=== PATIENT | male | born 1985 | race Caucasian/White ===

== ENCOUNTER → 2023-02-07 | Emergency (ER) | payer OTHER ==
[~2023-02-07] MED LIST: HYDROCODONE/APAP 7.5/325 MG TAB ONE; LIDOCAINE 1% 20 ML MDV ONE
--- NOTE | 2023-02-07 13:07 | RAD REPORT ---
EXAM DESCRIPTION: CT - Facial Bones W/ Mpr - 02/07/2023 12:34 pm CLINICAL HISTORY: Facial injury with pain s/p fall COMPARISON: None TECHNIQUE: Computed axial tomography of the face was obtained. Coronal and sagittal reconstruction w as performed. All CT scans are performed using dose optimization technique as appropriate and may include automated exposure control or mA/KV adjustment according to patient size. FINDINGS: Several radiopaque densities lie superficial to several mandibular near midline. The large st measures 5 millimeters. Right and left mandibular incisors near midline have become loose at the root A fracture is not seen A TMJ dislocation is not noted. The globes are intact. Fluid within the sinuses is not seen. IMPRESSION: Several radiopaque densities lie superficial to several mandibular near midline. The lar gest measures 5 millimeters. Right and left mandibular incisors near midline have become loose at the root. Presumably this is tra umatic
--- NOTE | 2023-02-07 14:46 | EDPHYS ---
Physician Documentation [facility] Name: Leo Stafford Age: 37 yrs Sex: Male : 1985 Arrival Date: 02/07/2023 Time: 11:54 Bed 12 Private MD: ED Physician Ab Joseph HPI: 02/07 12:20 This 37 yrs old Male presents to ER via Ambulatory with complaints of Laceration To cp Lip, Laceration To Chin. 12:20 The patient has a laceration Patient is a 37-year-old male who presents to the emergency department with a reported slip and fall while in the restroom this morning. Patient reports he struck his lower jaw on the shower causing his upper front teeth to punch through his lower lip. Patient denies any loss of consciousness. Historical: - Allergies: 12:05 No Known Allergies; ap3 - Home Meds: 12:05 trazodone Oral [Active]; Prozac Oral [Active]; ap3 - Immunization history:: Client reports receiving the 2nd dose of the Covid vaccine, Flu vaccine is not up to date. - Social history:: Smoking status: Patient denies any tobacco usage or history of. ROS: 12:25 Constitutional: Negative for chills, fever, cp 12:25 Eyes: Negative for injury, pain, redness, and discharge, cp 12:25 ENT: Positive for dental pain, 12:25 Neck: Negative for pain with movement, pain at rest, stiffness, 12:25 Cardiovascular: Negative for chest pain, palpitations, 12:25 Respiratory: Negative for cough, shortness of breath, wheezing, 12:25 Abdomen/GI: Negative for abdominal pain, vomiting, diarrhea, constipation, 12:25 Back: Negative for pain at rest, pain with movement, 12:25 Neuro: Negative for altered mental status, dizziness, headache, loss of consciousness, syncope, weakness, 12:25 All other systems are negative, Exam: 12:30 Constitutional: The patient appears in no acute distress, alert, awake, non-toxic, well cp developed, well nourished, uncomfortable, 12:30 Head/face: Noted is Mild swelling noted of the lower lip there is a large laceration cp beneath the lower lip and a smaller laceration on the inner part of the lower lip. There is mild bleeding and the area is tender to the touch. Examination of the wound does reveal small pieces of broken teeth. 12:30 Eyes: Periorbital structures: appear normal, Pupils: equal, round, and reactive to light and accomodation, Extraocular movements: intact throughout, Conjunctiva: normal, no exudate, no injection, Sclera: no appreciated abnormality, Lids and lashes: appear normal, bilaterally, 12:30 ENT: External ear(s): are unremarkable, Ear canal(s): are normal, clear, TM's: dullness, bilaterally, Nose: is normal, Mouth: Oral mucosa: pink and intact, moist, Tongue: is normal, Posterior pharynx: Airway: no evidence of obstruction, patent, Dental exam: fractured teeth are noted, specifically the upper right central incisor (#8) and upper left central incisor (#9), pain, that is mild, specifically in the upper right central incisor (#8) and upper left central incisor (#9), loose but in place, 12:30 Neck: C-spine: vertebral tenderness, is not appreciated, crepitus, is not appreciated, ROM/movement: is normal, is supple, without pain, no range of motions limitations, no nuchal rigidity, 12:30 Chest/axilla: Inspection: normal, Palpation: is normal, no crepitus, no tenderness, 12:30 Cardiovascular: Rate: normal, Rhythm: regular, 12:30 Respiratory: the patient does not display signs of respiratory distress, Respirations: normal, no use of accessory muscles, no retractions, labored breathing, is not present, Breath sounds: are clear throughout, no decreased breath sounds, no stridor, no wheezing, 12:30 Abdomen/GI: Inspection: abdomen appears normal, Palpation: abdomen is soft and non-tender, in all quadrants, 12:30 Back: pain, is absent, ROM is normal, 12:30 Neuro: Orientation: no acute changes, Mentation: no acute changes, Motor: moves all fours, strength is normal, Gait: is steady, Vital Signs: 12:04 BP 174 / 118; Pulse 94; Resp 17; Temp 98.9; Pulse Ox 97% ; Weight 123.83 kg; Height 5 ap3 ft. 11 in. ; Pain 10/10; 14:56 BP 167 / 114; ap3 12:04 Body Mass Index 38.08 (123.83 kg, 180.34 cm) ap3 12:04 Pain Scale: Adult ap3 Laceration: 14:50 Wound Repair of 7cm ( 2.8in ) full thickness laceration to below lower lip. Linear cp shaped.. Distal neuro/vascular/tendon intact. Anesthesia: Wound infiltrated with 8 mls of 1% lidocaine. Wound prep: Moderate cleansing by me, Wound irrigation by me, NS used and multiple small pieces of teeth removed from wound. Skin closed with 7 5-0 Prolene using simple sutures and sterile technique. Subcutaneous tissue closed with 7 5-0 Vicryl using simple sutures and sterile technique. Patient tolerated well. MDM: 12:04 Patient medically screened. cp 14:45 Data reviewed: vital signs, nurses notes, radiologic studies, CT scan, and as a result, cp I will discharge patient. 14:45 Differential diagnosis: superficial laceration, open fracture. I considered the cp following discharge prescriptions or medication management in the emergency department Medications were administered in the Emergency Department. See MAR. Counseling: I had a detailed discussion with the patient and/or guardian regarding the historical points, exam findings, and any diagnostic results supporting the discharge/admit diagnosis, radiology results, the need for outpatient follow up, a dentist, to return to the emergency department if symptoms worsen or persist or if there are any questions or concerns that arise at home. Response to treatment: the patient's symptoms have markedly improved after treatment, and as a result, I will discharge patient. 02/07 12:11 Order name: CT Facial Bones W/O Con; Complete Time: 13:17 cp 02/07 13:08 Order name: Wound Care: please clean and irrigate; Complete Time: 15:26 cp 02/07 13:08 Order name: Dressing - Wound; Complete Time: 15:16 cp 02/07 13:08 Order name: Gloves, Sterile; Complete Time: 15:16 cp 02/07 13:08 Order name: Setup Suture Tray; Complete Time: 13:35 cp 02/07 14:44 Order name: Wound dressing; Complete Time: 15:26 cp 02/07 14:44 Order name: Blood Pressure Recheck; Complete Time: 15:03 cp Administered Medications: 12:20 Drug: Hydrocodone-Acetaminophen PO (7.5 mg-325 mg) 1 tabs PO once; RASS on ADMIN: ap3 Combtv4, Very Agttd3, Agttd2, Rstlss1, AlertClm0, Drwsy-1, Lt Sdtn-2, Mod Sdtn-3, Dp Sdtn-4, UnArsble-5 Route: PO; 15:26 Follow up: Response: No adverse reaction ap3 15:16 Drug: Lidocaine Infiltration (1 %) 10 ml 20 ml Infiltration once; to bedside {Note: by ap3 SATHISH eagle.} Volume: 20 ml; Route: Infiltration; 15:26 Drug: Clindamycin PO 300 mg PO once Route: PO; ap3 Disposition Summary: 02/07/23 14:46 Discharge Ordered Notes: Location: Home cp Problem: new cp Symptoms: have improved cp Condition: Stable cp Diagnosis - Fracture of tooth (traumatic) cp - Laceration with foreign body of lip, initial encounter cp - Elevated blood-pressure reading, without diagnosis of hypertension cp Followup: cp - With: Private Physician - When: 7 - 10 days - Reason: Staple/Suture removal Discharge Instructions: - Discharge Summary Sheet cp - Dental Pain cp - Mouth Laceration cp - Facial Laceration cp - Tooth Injuries cp - How to Take Your Blood Pressure, [id number]-[id number] cp - DASH Eating Plan cp - Form - Blood Pressure Record Sheet cp Forms: - Medication Reconciliation Form cp - Thank You Letter cp - Antibiotic Education cp - Prescription Opioid Use cp - Patient Portal Instructions cp - Leadership Thank You Letter cp Prescriptions: - Clindamycin HCl 300 mg Oral Capsule - take 1 capsule ORAL route every 6 hours for 10 days; 40 capsule; Refills: 0, cp Product Selection Permitted - Ibuprofen 800 mg Oral Tablet - take 1 tablet ORAL route every 8 hours As needed take with food; 30 tablet; cp Refills: 0, Product Selection Permitted Signatures: Dispatcher [employer] EDMS Ab Eagle PA PA cp Marjorie Polk RN RN ap3 Corrections: (The following items were deleted from the chart) 02/08 15:00 14:08 This 37 yrs old Male presents to ER via Ambulatory with complaints of Laceration cp To Lip, Laceration To Chin. cp :02/07 14:08 This 37 yrs old Male presents to ER via Ambulatory with complaints of cp Laceration To Lip, Laceration To Chin. cp 02/08 15:00 12 14:08 The patient has a laceration Patient is a 37-year-old male who presents to the emergency department with a reported slip and fall while in the restroom this morning. Patient reports he struck his lower jaw on the shower causing his upper front teeth to punch through his lower lip. Patient denies any loss of consciousness, 02/08 15:13 02/07 14:50 Wound Repair of 7cm ( 2.8in ) full thickness laceration to below lower lip. cp Linear shaped.. Distal neuro/vascular/tendon intact. Anesthesia: Wound infiltrated with 8 mls of 1% lidocaine. Wound prep: Moderate cleansing by me, Wound irrigation by me. Skin closed with 7 5-0 Prolene using simple sutures and sterile technique. Subcutaneous tissue closed with 7 5-0 Vicryl using simple sutures and sterile technique. Patient tolerated well. cp
--- NOTE | 2023-02-07 14:46 | ER ---
Nurse's Notes [facility] Name: Leo Stafford Age: 37 yrs Sex: Male : 1985 Arrival Date: 02/07/2023 Time: 11:54 Bed 12 Private MD: Diagnosis: Fracture of tooth (traumatic);Laceration with foreign body of lip, initial encounter;Elevated blood-pressure reading, without diagnosis of hypertension Presentation: 02/07 12:04 Chief complaint: Patient states: he fell getting into the shower this morning. patient ap3 presents to the ED with a laceration to the lower lip. Coronavirus screen: At this time, the client does not indicate any symptoms associated with coronavirus-19. Ebola Screen: No symptoms or risks identified at this time. Initial Sepsis Screen: Does the patient meet any 2 criteria? HR > 90 bpm. Does the patient have a suspected source of infection? Yes: Skin breakdown/wound. Risk Assessment: Do you want to hurt yourself or someone else? Patient reports no desire to harm self or others. Onset of symptoms was February 07, 2023. 12:04 Method Of Arrival: Ambulatory ap3 12:04 Acuity: SIHRA 3 ap3 15:26 Complicating Factors: There are no complicating factors for this patient. ap3 Triage Assessment: 12:06 General: Appears uncomfortable, Behavior is cooperative, anxious. Pain: Complains of ap3 pain in lower vermilion border Pain currently is 10 out of 10 on a pain scale. Pain began suddenly. Neuro: Level of Consciousness is awake, alert, obeys commands, Oriented to person, place, time, situation, Appropriate for age. Cardiovascular: Patient's skin is warm and dry. Respiratory: Airway is patent Respiratory effort is even, unlabored, Respiratory pattern is regular, symmetrical. Injury Description: Laceration sustained to lower vermilion border. Historical: - Allergies: 12:05 No Known Allergies; ap3 - Home Meds: 12:05 trazodone Oral [Active]; Prozac Oral [Active]; ap3 - Immunization history:: Client reports receiving the 2nd dose of the Covid vaccine, Flu vaccine is not up to date. - Social history:: Smoking status: Patient denies any tobacco usage or history of. Screenin:07 [facility] ED Fall Risk Assessment (Adult) History of falling in the last 3 months, ap3 including since admission Yes- single mechanical fall (1 pt) Confusion or Disorientation No (0 pts). Abuse screen: Denies threats or abuse. Nutritional screening: No deficits noted. Tuberculosis screening: No symptoms or risk factors identified. Assessment: 15:27 Injury Description: Laceration is. ap3 15:27 Musculoskeletal: No deficits noted. ap3 Vital Signs: 12:04 BP 174 / 118; Pulse 94; Resp 17; Temp 98.9; Pulse Ox 97% ; Weight 123.83 kg; Height 5 ap3 ft. 11 in. ; Pain 10/10; 14:56 BP 167 / 114; ap3 12:04 Body Mass Index 38.08 (123.83 kg, 180.34 cm) ap3 12:04 Pain Scale: Adult ap3 ED Course: 11:57 Patient arrived in ED. im 12:03 Ab Eagle PA is PHCP. cp 12:03 Ab Joseph MD is Attending Physician. cp 12:05 Triage completed. ap3 12:07 Arm band placed on right wrist. ap3 12:07 Patient has correct armband on for positive identification. Bed in low position. Call ap3 light in reach. Adult w/ patient. Pulse ox on. NIBP on. 12:33 CT Facial Bones W/O Con In Process Unspecified. EDMS 15:26 No provider procedures requiring assistance completed. Patient did not have IV access ap3 during this emergency room visit. 15:27 Provided Education on: wound care and discharge instructions. ap3 Administered Medications: 12:20 Drug: Hydrocodone-Acetaminophen PO (7.5 mg-325 mg) 1 tabs PO once; RASS on ADMIN: ap3 Combtv4, Very Agttd3, Agttd2, Rstlss1, AlertClm0, Drwsy-1, Lt Sdtn-2, Mod Sdtn-3, Dp Sdtn-4, UnArsble-5 Route: PO; 15:26 Follow up: Response: No adverse reaction ap3 15:16 Drug: Lidocaine Infiltration (1 %) 10 ml 20 ml Infiltration once; to bedside {Note: by ap3 SATHISH eagle.} Volume: 20 ml; Route: Infiltration; 15:26 Drug: Clindamycin PO 300 mg PO once Route: PO; ap3 Medication: 15:27 VIS not applicable for this client. ap3 Outcome: 14:46 Discharge ordered by MD. randhawa 15:27 Discharged to home ap3 15:27 Condition: good 15:27 Discharge instructions given to patient, Instructed on discharge instructions, follow up and referral plans. medication usage, Demonstrated understanding of instructions, follow-up care, medications, Prescriptions given X 2, 15:27 Patient left the ED. ap3 Signatures: Dispatcher [employer] EDMS Ab Eagle PA PA cp Prokisch, Amanda RN RN ap3 Edelmira Khoury
[2023-02-07 15:37] VITALS: BP 167/114; TEMP 98.9; O2SAT 97
== END ==
LOC: ER 11:54
PROC: 0HQ1XZZ Repair Face Skin, External Approach (ICD-10-PCS; principal; 2023-02-07)
DX: S02.5XXA Fracture of tooth (traumatic), initial encounter for closed fracture (principal); S01.81XA Laceration without foreign body of other part of head, initial encounter
CPT/HCPCS: 70486; 76377; 99283; 12014; J2001